=== PATIENT | female | born 1950 | race Caucasian/White ===

== ENCOUNTER 2024-04-15 06:57 | Emergency (ER) | payer OTHER ==
[~2024-04-15] VITALS: Ht 154.9 cm; Wt 69.0 kg
[2024-04-15 06:59] VITALS: O2SAT 100
[2024-04-15 07:38] LABS: BASOPHILS % 0.6 % (0.0-2.0); EOSINOPHILS % 3.2 % (0.0-5.0); HEMATOCRIT. 42.2 % (36.0-48.0); HEMOGLOBIN. 13.8 g/dL (12.0-16.0); LYMPHOCYTES % 39.7 % (20.0-50.0); MEAN CORPUSCULAR HEMOGLOBIN 29.1 pg (28.0-32.0); MEAN CORPUSCULAR HGB CONC 32.8 g/dL (31.0-37.0); MEAN CORPUSCULAR VOLUME 88.8 fL (81.0-99.0); MEAN PLATELET VOLUME 7.4 fl (7.4-10.4); MONOCYTES % 8.2 % (2.0-8.0); NEUTROPHILS % 48.3 % (40.0-76.0); PLATELET 351 x1000/uL (130-400); RED BLOOD CELL COUNT 4.75 mill/uL (4.2-5.4); RED CELL DISTRIBUTION WIDTH 14.5 % (11.6-14.6); WHITE BLOOD COUNT 8.8 x1000/uL (4.5-11.0)
[2024-04-15 07:42] LABS: CHLORIDE 106 mEq/L (98-107); POTASSIUM 3.1 mEq/L (3.5-5.1); SODIUM 140 mEq/L (136-145)
[2024-04-15 07:43] LABS: CALCIUM 9.6 mg/dL (8.7-10.4); CARBON DIOXIDE 23 mEq/L (21-32)
[2024-04-15 07:48] LABS: CREATININE 0.7 mg/dL (0.6-1.0); GLUCOSE 150 mg/dL (70-105); INR 0.9; PROTHROMBIN TIME 10.3 sec (9.6-11.0); UREA NITROGEN BLOOD 11 mg/dL (9-23)
[2024-04-15 07:49] LABS: TROPONIN I HIGH SENSITIVITY 5 ng/L (3.0-34)
[2024-04-15] MEDS: ACETAMINOPHEN 325MG TABLET PO STA (07:56)
[2024-04-15] MEDS: LORAZEPAM 0.5MG TABLET PO ONE (07:56)
[2024-04-15] MEDS: POTASSIUM CHLORIDE 20MEQ TABLET SR PO ONE (08:45)
[2024-04-15 08:52] VITALS: TEMP 36.33624
[2024-04-15] MEDS: DIPHENHYDRAMINE 50MG/ML VIAL IV ONE (09:00)
[2024-04-15] MEDS ORDERED: IOHEXOL-350 100 ML BOTTLE ONE (10:22)
[2024-04-15] MEDS: METHYLPREDNISOLONE SOD SUCC 40MG/ML (ACT-O-VIAL) IV ONE (10:26)
[2024-04-15 11:43] VITALS: BP 136/69; PULSE 58; RESP 12; O2SAT 96
== END 2024-04-15 11:45 | disposition home or self-care (01) ==
LOC: ER 06:57
DX: I67.1 Cerebral aneurysm, nonruptured (principal); I10 Essential (primary) hypertension; E87.6 Hypokalemia; E78.00 Pure hypercholesterolemia, unspecified; Z88.0 Allergy status to penicillin
CPT/HCPCS: 80048; 83880; 85025; 85610; 84484; 36415; 71045; 70496; 70498; 70450; 93005; 96374; 96375; 99285; Q9967; J1200; J2920